=== PATIENT | female | born 1945 | race Caucasian/White ===

== ENCOUNTER 2017-12-27 03:54 | Inpatient (IN) | payer OTHER ==
--- NOTE | 2017-12-24 13:51 | Cons- Neurosurgical ---
General Information and HPI Consulting Request Date of Consult: 12/06/19 Requested By: Mayela DIA,Cruz Dove Reason for Consult: 10 years of low back pain and with sciatica Source of Information: patient Exam Limitations: no limitations History of Present Illness: 72-year-old right-handed lady 10 years history of back pain 1 year of low pain. There is no definite trauma in her past history. 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 Her symptoms are worse with sneezing bending simply walking and lying down and are somewhat improved with rest and medications. She complains of weakness in her back and tingling in her legs. She has had chiropractic treatment and physical therapy and has had at least one epidural injection that gave her marginal improvement. She has worn a brace that gave her marginal improvement Allergies/Medications Allergies: Coded Allergies: oxycodone (From PERCOCET) (Intermediate, NAUSEA 06/16/16) Home Med List: Aspirin (Ecotrin*) 81 MG TABLET.DR 1 TAB PO DAILY HEART/BLOOD (Reported) Calcium Carbonate/Vitamin D3 (Calcium 600 + Vit D3 Caplet) 600 MG-800 TABLET 1 TAB PO DAILY SUPPLEMENT (Reported) Celecoxib (Celebrex) 100 MG CAPSULE 1 CAP PO DAILY PAIN/INFLAMMATION ( Reported) Cyanocobalamin (Vitamin B-12) (Vitamin B-12) 1,000 MCG CAPSULE 1 CAP PO DAILY SUPPLEMENT (Reported) Duloxetine HCl 30 MG CAPSULE.DR 1 CAP PO DAILY MENTAL HEALTH (Reported) Levothyroxine Sodium 50 MCG TABLET 1 TAB PO DAILY THYROID (Reported) Losartan/Hydrochlorothiazide (Losartan-Hctz 100-25 MG Tab) 100 MG-25 MG TABLET 1 TAB PO DAILY BP (Reported) [place]-3 Acid Ethyl Esters (Lovaza) 1 GRAM CAPSULE 2 CAP PO BID CHOLESTEROL/ TRIGLYCERIDES (Reported) Oxymetazoline HCl (Afrin) 0.05 % MIST 1 SPRAY NASB QPM CONGESTION (Reported) Rosuvastatin Calcium (Crestor) 10 MG TABLET 1 TAB PO DAILY CHOLESTEROL ( Reported) Ubidecarenone (Co Q-10) 100 MG CAPSULE 1 CAP PO BID SUPPLEMENT (Reported) Current Medications: Current Medications Sig/Karyna Start time Last Medication Dose Route Stop Time Status Admin Cefazolin Sodium 1,000 MG ONCE 12/27 0000 NR IV 12/27 9176 Past History Medical History Blood Transfusion Hx: No Neurological: NONE EENT: NONE Cardiovascular: hypertension, hyperlipidemia Respiratory: NONE Gastrointestinal: diverticulitis Hepatic: NONE Renal: NONE Musculoskeletal: chronic back pain, CERVICAL SURG Psychiatric: anxiety Endocrine: hypothyroidism Blood Disorders: NONE Cancer(s): NONE COMMERCIAL FRONT LOAD [employer]IVER/Reproductive: NONE Other Medical Hx: No other significant medical history Surgical History Pertinent Surgical History: colon resection, neck surgery Psychosocial History Where Do You Live? Home Who Do You Live With? spouse Services at Home: None Primary Language: Singaporean Smoking Status: Former Smoker ETOH Use: denies use Illicit Drug Use: denies illicit drug use Living Will? unknown Power of Sugar [employer] Supervisor/HCP? unknown Functional Ability ADLs Independent: dressing, eating, toileting, bathing. Ambulation: independent IADLs Independent: shopping. Employment History Employment: Retired Profession/Employer: nursing Retired? yes Review of Systems Review of Systems: She denies bowel or bladder dysfunction Review of Systems Constitutional: Denies: see HPI. EENTM: Denies: see HPI. Cardiovascular: Denies: see HPI. Respiratory: Denies: see HPI. GI: Denies: see HPI. Genitourinary: Denies: see HPI. Musculoskeletal: Reports: see HPI. Skin: Denies: see HPI. Neurological/Psychological: Reports: see HPI. Hematologic/Endocrine: Denies: see HPI. Immunologic/Allergic: Denies: see HPI. All Other Systems: Reviewed and Negative Exam & Diagnostic Data Vital Signs and I&O Vital signs as per intake sheet and per primary care Physical Exam: Awake alert oriented. She stands 5 foot 4 and weighs 174 pounds. She is tender to palpation of her back she has spasms paraspinous muscles. Presumably bending but marked limitation of hyperextension. Strength is 5 over 5 in all groups. She has 2+ knee jerks, 1+ ankle jerks on the left absent on the right. The toes are downgoing and she has negative straight leg raising. Sensory examination is symmetrical. Physical Exam General Appearance: alert Head: atraumatic Eyes: Bilateral: normal appearance. Ears, Nose, Throat: normal pharynx Neck: supple Respiratory: normal breath sounds Cardiovascular: regular rate/rhythm Breasts deferred Peripheral Pulses: 2+ carotid (R), 2+ carotid (L), 2+ femoral (R), 2+ femoral (L) Gastrointestinal: soft Rectal: deferred Back: see above Extremities: normal inspection Neurologic/Psych: see above Cranial Nerves: normal hearing Skin: see above Lymphatic: no lesions Reproductive: deferred Pelvic: deferred Other Physical Findings: No other significant finding Last 24 Hours of Labs: Pending CXR and Imaging Results: MRI demonstrates right paracentral disc herniation and severe facet arthropathy at L5-S1, anterolisthesis of L4-L5 with severe bilateral facet arthropathy and foraminal entrapments Other Results: Lab work within normal limits Assessment/Plan Assessment/Plan Stenosis L4 5 L5-S1, spondylolisthesis L4-L5, disc disease L5-S1 She is being admitted for a decompressive laminectomy and fusion and disc excision Other Findings/Comments: Cruz Pedro M.D. Consult Acknowledgment - Thank you for your consult request.
[~2017-12-27] VITALS: Ht 162.6 cm; Wt 78.9 kg
[~2017-12-27 03:54] MED LIST: AFRIN15 ML NASB; ASPIRIN EC81 M1 PO; CALCIUM 600 +1 EAC9 PO; CELEBREX100 M1 PO; CO Q-10100 MG PO; CRESTOR10 M1 PO; DULOXETINE HCL30 MG PO; LEVOTHYROXINE50 MCG PO; LOSARTAN-HCTZ1 EAC2 PO; LOVAZA1 G1 PO; VITAMIN B-121000 MC4 PO
[2017-12-27] MEDS ORDERED: TIZANIDINE HCL2 M2 PO (06:34)
[2017-12-27] MEDS ORDERED: TOPROL XL50 M1 PO (06:47)
--- NOTE | 2017-12-27 15:44 | Operative Report ---
Operative/Inv Procedure Report Surgery Date: 12/27/17 Name of Procedure: #1 decompressive lumbar laminectomy bilateral L4 5 #2 decompressive lumbar laminectomy bilateral L5-S1 #3 left-sided medial facetectomy and osteo-Carlos Eduardo osteotomy at L4 5 left #4 right sided medial facetectomy L5-S1 right #5 preparation of space for fusion L4 5 L5-S1 #6 left insertion of TL ORIF fuse cage at L4 5 As secondary #7 right insertion of TL ORIF fuse cage at L5-S1 #8 stealth registration #9 stealth guided pedicle screw insertion L4 L5 S1 bilateral #10 arthrodesis O2 and allograft L4 to S1 bilateral Pre-Operative Diagnosis: #1 spondylolisthesis L4 5 #2 lumbar spinal stenosis L5-S1 Post-Operative Diagnosis: same Estimated Blood Loss: 900cc Surgeon/Elect Equip Maint Eng: Mayela DIA,Cruz Dove(co-surgeon) MD MENDEZ Michael Anesthesia: general endotracheal tube Monitors: neurophysiology IV Fluids: 200cc Implants: see [employer] sheet as tlif Fuse cage=[id number] at L4-5 [id number] at L5S1 Urine Output: 180cc Drains: 2xhemovac Specimens: HNP Microbiology: none Tourniquet: none Complications: none Condition: stable Operative Indication: 72-year-old right-handed lady with 10 years history of back pain with gradual worsening. The pain was of a mechanical nature. There was essentially little or no leg pain Her workup revealed spondylolisthesis at L4 5 and tight stenosis at L5-S1 Indications for surgery alternative risks and possible convocation were discussed at length. Patient elected to have surgery performed O guarantees given all questions answered Operative/Procedure Note Note: The patient was brought in supine intubated supine received 2 g of intravenous antibiotics was then placed prone on the Gordy table. All surfaces of contact were padded doubly and the position was deemed to be satisfactory in association with anesthesia The back was prepped and draped usual sterile manner infiltrated with Xylocaine and epinephrine and sharp dissection was carried down to the aponeurosis which was then taken down on both sides of the midline and a subperiosteal elevation of the muscle was performed allowing us to land on the lamina of 345 and a lot the sacrum and onto the transverse processes of L4-L5 and the alae a LAE of the sacrum A marker was then placed confirming that we were under the lamina of L5 following which the spinous processes of 54 and partially of 3 were removed Starting at the L5-S1 level in the midline with 3 and 4 mm Kerrisons a complete laminectomy of 5 was accomplished followed by a complete laminectomy of 4 ligamentum flavum was then removed and midline compressing structures at L4 5 L5 -S1 were likewise removed the medial facet on the right hand on the left-hand side at L4 5 was removed with a Leksell and Kerrisons opening widely the pars and allowing for full visualization of both the nerve structures and disc material likewise on the right-hand side at L5-S1. Aggressive medial facetectomy allowed us to have a complete decompression of the nerve roots and of the disc space at that level Following this after obtaining further x-rays the disc space was entered at L5- S1 after being cauterized and disc material removed and the standard manner and this dilators starting at 8 mm brought up to about 12 mm a trial device shown to be satisfactory and aggressive curettes used to prepare the space DBF graft on the was reconstituted with blood material and a mix of DBF and autologous bone were placed in the disc space once it has been fully prepared and a 12 x 12 mm x 8 29 mm fuse cage was inserted at the L5-S1 level coming in from the right Attention was then directed towards the left-hand side at L4 5 where likewise once the nerve root was gingerly retracted the annulus was incised and disc material removed in the standard fashion before dilating all the way up to 13 and using cutting devices likewise removed soft tissue once the space was likewise prepared the after curetting the space accepted a 13 mm x 8 of fuse cage and this will both were verified on AP and lateral films be in satisfactory position and were inserted without any anomalies of EMG tracing 1 spray films were obtained showing good satisfactory position across the midline reattachment for the starburst was attached to the L2 spinous process and the O arm brought in. Films were obtained allowing us to plan the Stealth part of the procedure Following this pedicle screws at L4-L5 and S1 were inserted bilaterally under Stealth direction and after testing with neurophysiology and S1 screw was repositioned and were satisfied with the positioning of all the screws Using a high-speed drill the bone was prepared for fusion on the traversing transverse processes of L4-L5 and the a lot the sacral sacrum as well as the medial aspects of the facets. Autologous bone and DBF graft on were inserted and arthrodesis obtained bilaterally in such manner. A new O arm series of images were obtained confirming that we had very good positioning of all the pedicle screws and neurophysiological testing was silent 2 Hemovacs were left in the deep space after placing 500 mg of vancomycin powder on the arthrodesis surfaces The muscle was closed in depth with 0 Dexon muscle and aponeurosis were closed with 0 Dexon the muscle infiltrated with 30 mL of quarter percent Marcaine plain subcutaneous and subcutaneous taken a tissue were closed with 2 and 3-0 Dexon and skin was closed with stainless steel aileen a full dressing was applied and the patient was in satisfactory condition upon removal to the recovery room Findings: Tight stenosis as well as abnormal anatomy at the L5-S1 level Discharge Disposition: PACU Additional Comments: Neurophysiological finding at the end was satisfactory CC: Mayela DIA,Cruz Dove; Zayda DIA,Camron Hendrickson
[2017-12-27 17:30] VITALS: BP 142/72
[2017-12-27 19:45] VITALS: BP 136/78
--- NOTE | 2017-12-27 20:03 | PN- Orthopedic ---
Subjective Subjective: POC feeling ok, some incisional soreness. no po intake, no oob yet. +uo via de leon. no cp/sob/n/v Objective Vital Signs and I&Os Vital Signs Date Time Temp Pulse Resp B/P B/P Pulse O2 O2 Flow FiO2 Mean Ox Delivery Rate 12/27 1944 98.7 61 20 136/78 97 Nasal 2.0L Cannula 12/27 1729 99.4 70 18 142/72 96 Nasal 2.0L Cannula 12/27 1729 97 Nasal 2.0L Cannula OLIVIA L: 75+ since OR, serosang OLIVIA R: 75+ since OR, serosang de leon- clear yellow urine in bag, 200+ Physical Exam: GEN- NAD CARD-S1S2 RRR PULM-CTAB EXT/BACK- incision cdi, jpx2 with serosang to self suction, ttp at incision. BLE: calves soft nt, alps on, palp pedal pulses, gross sensate intact/equal, + dorsi/plantar flexion Assessment/Plan Assessment/Plan A- POD0 sp decompressive lumbar laminectomy with fusion, stable with approprate postop pain P- prn pain meds, valium alps, oob, ambulate, pt eval ist, titrate o2 jpx2 to self suction abx while jps in place reg diet home meds dc planning Core Measures Venous Thromboembolism VTE Risk Factors Surgery No Mechanical VTE Prophylaxis d/t N/A MechProphylax Ordered No VTE Pharm Prophylaxis d/t Surgical Contraindication (per Dr. Pedro)
--- NOTE | 2017-12-27 20:47 | Admission Core Measures ---
Acute Coronary Syndrome (CM) ACS Core Measures Acute Coronary Syndrome Diagnosis No Congestive Heart Failure (NEW) CHF Core Measures Congestive Heart Failure Diagnosis No Cerebrovascular Accident (NEW) CVA Core Measures CVA/TIA Diagnosis No Venous Thromboembolism VTE Core David (View Protocol) VTE Risk Factors Surgery No Mechanical VTE Prophylaxis d/t N/A MechProphylax Ordered No VTE Pharm Prophylaxis d/t Surgical Contraindication (per Dr. Pedro) Problem List As ranked by this Provider includes Assessment & Plan 1. Lumbar spondylosis HOME MEDS Home Med List Aspirin (Ecotrin*) 81 MG TABLET.DR 1 TAB PO DAILY HEART/BLOOD (Reported) Calcium Carbonate/Vitamin D3 (Calcium 600 + Vit D3 Caplet) 600 MG-800 TABLET 1 TAB PO DAILY SUPPLEMENT (Reported) Celecoxib (Celebrex) 100 MG CAPSULE 1 CAP PO DAILY PAIN/INFLAMMATION ( Reported) Cyanocobalamin (Vitamin B-12) (Vitamin B-12) 1,000 MCG CAPSULE 1 CAP PO DAILY SUPPLEMENT (Reported) Duloxetine HCl 30 MG CAPSULE.DR 1 CAP PO DAILY MENTAL HEALTH (Reported) Levothyroxine Sodium 50 MCG TABLET 1 TAB PO DAILY THYROID (Reported) Losartan/Hydrochlorothiazide (Losartan-Hctz 100-25 MG Tab) 100 MG-25 MG TABLET 1 TAB PO DAILY BP (Reported) Metoprolol Succ XL (Toprol Xl) 50 MG TAB 1 TAB PO DAILY HEART HEALTH ( Reported) [place]-3 Acid Ethyl Esters (Lovaza) 1 GRAM CAPSULE 2 CAP PO BID CHOLESTEROL/ TRIGLYCERIDES (Reported) Oxymetazoline HCl (Afrin) 0.05 % MIST 1 SPRAY NASB QPM CONGESTION (Reported) Rosuvastatin Calcium (Crestor) 10 MG TABLET 1 TAB PO DAILY CHOLESTEROL ( Reported) Tizanidine HCl 2 MG CAPSULE (Unknown Dose) PRN PAIN/MUSCLE RELAXANT (Reported ) Ubidecarenone (Co Q-10) 100 MG CAPSULE 1 CAP PO BID SUPPLEMENT (Reported)
[2017-12-27 21:18] VITALS: BP 126/64
--- NOTE | 2017-12-27 22:16 | RADIOLOGY REPORT ---
EXAMINATION: CR LUMBOSACRAL SPINE/INTRAOPERATIVE FLUOROSCOPY and O- ARM CLINICAL INDICATION: L4-L5 through L5-S1 decompressive laminectomies, discectomies with fusion in OR. COMPARISON: Lumbar spine films dated 02/03/2016. TECHNIQUE/FINDINGS: Fluoroscopic and o-arm equipment was dedicated to the operating room for the performance of an intraoperative procedure. Several (8) spot films and 2 OR spins were acquired and are archived in PACS, detailing various stages of the lumbar spine decompression and fusion with disc spacer placements at L4-L5 and L5-S1. Please refer to operative notes for procedural detail. FLUOROSCOPY TIME: Intraoperative fluoroscopy: 1.5 minutes. O-arm: 11.67 seconds. IMPRESSION: Administrative dictation for intraoperative fluoroscopy, O-arm use and image archiving in PACS. Please refer to operative notes for details.
--- NOTE | 2017-12-27 22:45 | Operative Report ---
Operative/Inv Procedure Report Surgery Date: 12/27/17 Name of Procedure: 1) L4 Decompressive Interpedicular Laminectomy, L4-L5 Right Partial Medial And Left Subtotal Facetectomies, Right Expanding And Left Partial Unroofing Foraminotomies, And Left Neurodecompressive Discectomy (Mary/Mayela) 2) L5 Decompressive Interpedicular Laminectomy, L5-S1 Right Subtotal And Left Partial Medial Facetectomies, Right Partial Unroofing And Left Expanding Foraminotomies, And Right Neurodecompressive Discectomy (Mary/Mayela) 3) L4-L5 Multicolumn (Anterior Column Interbody And Posterobilateral Column Osteoarticular Element And Intertransverse Process) Instrumented Fusion Using Morselized Nonstructural Locally Harvested Autograft Augmented With Nonstructural Allograft Substitute Osteopromotive Material (Mayela-Mary Co- Surgeons) 4) L5-S1 Multicolumn (Anterior Column Interbody And Posterobilateral Column Osteoarticular Element And Intertransverse Process) Instrumented Fusion Using Morselized Nonstructural Locally Harvested Autograft Augmented With Nonstructural Allograft Substitute Osteopromotive Material (Mayela-Mary Co- Surgeons) 5) L4-L5 Implantation Of Left Interbody Cage Instrumentation (Mayela/ Mary) 6) L5-S1 Implantation Of Right Interbody Cage Instrumentation (Mayela/ Mary) 7) L4-S1 Implantation Of Posterobilateral Sozjnyt-Pzkyf-Nvp Segmental Instrumentation (Mayela/Hetalk) 8) L4-S1 Stealth Frameless Stereotactic Computer-Assisted Spinal Navigational Placement Of Posterobilateral Pedicle Screw Instrumentation ( Mayela) 9) [place], Preparation And Implantation Of Iliac Crest Autologous Bone Marrow Aspirate (Mayela) 10) Preparation, Reconstitution And Implantation Of L4-S1 Interbody And Posterobilateral Intertransverse Process Nonstructural Allograft Substitute Osteopromotive Material (Myaela) 11) [place], Preparation And Implantation Of L4-S1 Interbody And Posterobilateral Intertransverse Process Nonstructural Morselized Local Autograft (Mayela) Pre-Operative Diagnosis: Primary Surgically Treated Diagnoses: 1) L4-L5 Lumbar Mid- To Upper Grade I Degenerative Dynamic Lumbar Spondylolisthesis Causing Mechanical Axial Low Back Pain, Severe Pistoning Lumbar Spinal Stenosis And Neurogenic Claudication 2) L4-L5 Lumbar Intervertebral Disc Disorder With Associated Mild Lumbar And Lumbosacral Distribution Proximal Radiculopathy 3) L5-S1 Lumbosacral Intervertebral Disc Disorder With Concurrent Mild Lumbar And Lumbosacral Distribution Proximal Radiculopathy 4) L4-L5 Bilateral Moderate To Severe Multizone (Moderate [place], Severe Bilateral Recess And Mild To Moderate Bilateral Foraminal) Osseous And Hypertrophic Soft Tissue Degenerative Disk Space Level Lumbar Spinal Stenosis 5) L5-S1 Bilateral Moderate To Severe Lateral Zone (Moderate To Severe Bilateral Recess And Foraminal) Osseous And Hypertrophic Soft Tissue Disk Space And Facet Level Lumbosacral Spinal Stenosis 6) L4-L5 Lumbar Spondylosis With Associated Mild Lumbar And Lumbosacral Distribution Proximal Radiculopathy 7) L5-S1 Lumbosacral Spondylosis With Concurrent Mild Lumbar And Lumbosacral Distribution Proximal Radiculopathy 8) L4-L5 And L5-S1 Clinical And Radiologic Findings Confirming Clinically Significant Degenerative Spinal Segmental Instability (L4-L5 Dynamic Spondylolisthetic Macroinstability And L5-S1 Severe Degenerative Microinstability With Vacuum Phenomenon) 9) Bilateral Severe, Activity And Functionally Limiting, Intermittently Incapacitating,Debilitating And Disabling Lumbar And Lumbosacral Region Axial Low Back Pain 10) L4-L5 Severe And L5-S1 Moderate Bilateral Neurocompressive Degenerative Lumbar Spinal Facet Instability Associated With Mild "Open Facet Sign" And Subluxation On MRI 11) L4-L5 Severe And L5-S1 Moderate Bilateral Hypertrophic And Neurocompressive Degenerative Lumbar And Lumbosacral Spinal Facet Arthropathy/ Osteoarthritis 12) L4-L5 Severe And L5-S1 Moderate Bilateral Degenerative Lumbar And Lumbosacral Spinal Facet Arthropathy/Arthritis 13) L4-L5 Mild To Moderate Degeneration Of Lumbar Intervertebral Disc Associated With Moderate Endplate Spondylotic Radiologic Changes Likely Contributing To Concurrent Segmental Instability With Clinical Features Beyond Radiculopathy Described Elsewhere In This Diagnosis List 14) L5-S1 Severe Degeneration Of Lumbosacral Intervertebral Disc Resulting In Symmetrical Disk Space Narrowing, Intradiscal Vacuum Phenomenon, Vertical Foraminal Narrowing, Osseous Foraminal Stenosis, Bordering Endplate MRI (Modic) Signal Changes As Well As Moderate Endplate Spondylotic Radiologic Changes Consistent With Segmental Microinstability With Clinical Features Beyond Radiculopathy Described Elsewhere In This Diagnosis List 15) L4-L5 Central [place]-Based Degenerative Displacement Of Lumbar Intervertebral Disc With Mild Intraforaminal Extension Associated With Clinical Features Beyond Radiculopathy Described Elsewhere In This Diagnosis List 16) L5-S1 [place]-Based Degenerative Displacement Of Lumbosacral Intervertebral Disc With Moderate Intraforaminal Extension And Encroachment Associated With Clinical Features Beyond Radiculopathy Described Elsewhere In This Diagnosis List 17) L4-L5 Lumbar Spondylosis [Associated With Clinical Features Beyond Radiculopathy Described Elsewhere In This Diagnosis List 18) L5-S1 Lumbosacral Spondylosis Associated With Clinical Features Beyond Radiculopathy Described Elsewhere In This Diagnosis List 19) Proximal Lower Extremity Lower Lumbar Distribution Claudicating Activity- Proportional Radiculopathy Distinct From Concurrent Intervertebral Disc Disorder And Spondylosis 20) Proximal Lower Extremity Lumbosacral Distribution Claudicating Activity- Proportional Radiculopathy Distinct From Concurrent Intervertebral Disc Disorder And Spondylosis Potential Primary Surgically Treated Diagnoses: 21) Lower Lumbar And Lumbosacral Region Bilateral Probable Multizone (Nearly Circumferential) Adherent And Potentially Tethering Lumbar And Lumbosacral Inflammatory And Degenerative Epidural Fibrosis Secondary Surgically Relevant Diagnoses: 22) Diffuse Lumbar Regional Spinal Degenerative Arthritis (Spondylopathy) 23) Moderate Scoliosis Post-Operative Diagnosis: Same as preoperative diagnosis list with the addition of: Intraoperative Surgically Treated Diagnoses: 1) L4-S1 Intraoperative (Post-Decompression, Pre-Instrumentation) Significant Anterior And Posterior Element Destabilization Secondary To Required Extensive Osseous and Soft Tissue Decompression Above And Beyond Preoperatively Documented Segmental Instability Requiring Intraoperative Instrumentation For Acute Stabilization, Optimization Of Fusion Potential And Overall Outcome Intraoperative And Postoperative Diagnoses Relevant To Postoperative Care: 1) L4-S1 Potential Increased Postoperative (Post-Decompression, Post- Instrumentation And Pre-Arthrodesis) Microinstability Under Cyclic Loading Even With Multicolumn Instrumentation Indicating Early Postoperative Activity Limitation And Circumferential Lumbar Compression Orthosis Use For Optimized Symptom Control, Stabilization, Fusion, Postoperative Function And Overall Outcome 2) Expected Acute Postoperative Lumbosacral Region Pain Requiring Postoperative Intravenous Narcotic Analgesic Pain Medication And Inpatient Nursing Observation Following Standard And Uncomplicated But Extensive Multilevel Lumbosacral Region Decompression And Multicolumn Instrumented Fusion 3) Expected Acute Postoperative Lumbosacral Region Muscular Spasm Requiring Postoperative Muscle Relaxant Medication And Inpatient Nursing Observation Following Procedure Documented Above 4) L4, L4-L5, L5 And L5-S1 Levels Lumbar And Lumbosacral Posterior Central, Posterobilateral, Lateral And Ventrolateral Osseous And Soft Tissue Decompression And Discectomy Postprocedural Status 5) L4-S1 Lumbar And Lumbosacral Spinal Early Postprocedural Instrumented Arthrodesis Status 6) Potential For Optimization And/Or Acceleration Of Bone Healing Relative To The Standard Healing Likelihood And Timecourse For The Extent (Number Of Motion Segments) Of Multicolumn, Multilevel Arthrodesis Performed (Due To The Multilevel Nature Of The Patient's Procedure And The Need For Partial Augmentation Of Fusion Mass Using Allograft Substitute Osteopromotive Material) All Of Which Meet Criteria For The Use Of An External Pulsed Electromagnetic Field Stimulation Device To Potentially Optimize And Accelerate Osseous Fusion Formation Estimated Blood Loss: 900 cc Estimated Blood Loss 465 cc Cell Saver Return Surgeon/Principal Architectural Firm: CUBA FELIZ MD - Primary Admitting Orthopaedic Spine Co-Surgeon OSMIN HERNANDEZ MD - Primary Consulting Neurological Spine Co-Surgeon Surgical Providers: Regarding Orthopaedic Spine Portion Of Procedure Dictated Here: Cuba Feliz M.D. - Orthopaedic Spine Surgeon (Co-Surgeon/Primary Admitting Surgeon) Osmin Hernandez M.D. - Neurosurgeon (Co-Surgeon/Principal Architectural Firm Surgeon) See Neurosurgical Operative Report Regarding Surgical Provider Designation For Neurosurgical Spine Portion Of Procedure Anesthesia: general endotracheal tube Monitors: Standard general anesthesia and other perioperative monitoring was performed per anesthesia protocols. Standard Intraoperative EMG, SSEP and MEP electrophysiological monitoring was performed per protocol (NeuroAlert). Refer to anesthesia and intraoperative electrophysiological monitoring records for details. IV Fluids: Standard anesthesia perioperative fluid management was performed without requirement for additional or emergent fluid resuscitation. Refer to anesthesia and cell-saver records for details. Implants: Implants Placed: Posterolateral Lumbar And Lumbosacral Junction Region Interbody Implants: [employer] [place] FUSE Titanium Posterolateral Interbody Cage Implants: 1 x 12 mm Height x 9.5 mm Width x 24.5 mm Depth x 8 Degree Lordosis On The Right At L5-S1 1 x 13 mm Height x 9.5 mm Width x 24.5 mm Depth x 8 Degree Lordosis On The Left At L4-L5 Posterobilateral Lumbar And Lumbosacral Junction Region Transpedicular Transvertebral Implants: Wishberga ATS System Posterobilateral Transpedicular Transvertebral Kbwghur-Bamcu-Ews Construct: 2 x 6.5 mm Diameter x 40 mm Length Dual Thread Pitch Pedicle Screws (One On Each Side At S1) 4 x 6.5 mm Diameter x 50 mm Length Dual Thread Pitch Pedicle Screws (One On Each Side At L5 And L4) 1 x 4.75 mm Diameter x 55 mm Length Russell-Chrome Juan On The Right From L4-S1 1 x 4.75 mm Diameter x 50 mm Length Russell-Chrome Juan On The Left From L4-S1 Graft Placed: Autograft Placed: Morselized Locally Harvested Autograft Harvested From: Resection Of L4 And L5 Spinous Processes L4 And L5 Interpedicular Laminectomies L4-L5 And L5-S1 Bilateral Facetectomies And Foraminotomie Placed At L4-L5 And L5-S1 In Anterior And Posterobilateral Columns Filling Central Chamber Of Each Interbody Cage (At L4-L5 And L5-S1) In Disk Space Anterior To And Surrounding Each Interbody Cage At L4-L5 And L5-S1 In Bilateral Intertransverse Posterolateral Spaces From L4 To S1 Allograft Placed: Nonstructural Processed Allograft Substitute Osteopromotive Material Placed: [employer] [place] DBF 1 x 6 cc Container Placed In Intervertebral Disk Space Anterior To Cage At L4-L5 And L5-S1 1 x 6 cc Container Placed In The Posterolateral Intertransverse Spaces Bilaterally From L4 To S1 1 Urine Output: Refer to anesthesia records for details. Drains: Large bore (15 Mongolian) subfascial OLIVIA drains x 2 to medium bulb suction reservoir. Fenestrated portions of drain tubes placed in each posterolateral intertransverse space (lateral gutter) with unfenestrated portion through deep muscle, fascia, subcutaneous tissue, and skin of bilateral inferolateral aspect of surgical site fierro without suture fixation. Specimens: Removed L4-L5 and L5-S1 lumbar disk fragments sent to pathology for analysis per hospital protocol. Complications: None Operative/Procedure Note Note: Preoperative Holding Area Assessment/Preparation: The patient was evaluated in the preoperative holding area prior to surgery and no clinical changes or contraindications to surgical intervention were evident compared to the normal preoperative baseline documented on office and clearance general, neurovascular and nonspinal musculoskeletal evaluations. Her primary presenting findings of axial mechanical lumbar pain were subjectively unchanged by patient report and not specifically assessed at the immediate preoperative evaluation. The surgical plan and site were confirmed with the patient and preoperative paperwork was finalized. The region of the intended surgical site was cleansed, prepped and marked per protocol. The surgeons, anesthesia care team members, and operating room staff verified the patient identity, surgical procedure, and operative site as well as other clinical details with the patient in an initial documented preoperative confirmation (awake time out) prior to the administration of significant sedation or anesthesia. Prior to receiving any preoperative medications, she also confirmed her NPO status since midnight. Surgical Procedure: Dr. Feliz and Dr. Hernandez were both present for and participated equally as co-surgeons in all clinically significant phases of the surgical procedure documented below as well as for all critical nonsurgical intraoperative and perioperative decisions and interventions. The set-up, positioning, frameless CT-referenced stereotactic analysis and guidance, disk space and posterobilateral osseous element fusion surface preparation and decortication, stabilization with implantation of multicolumn (interbody cage and posterobilateral ejumcnd-uoacv-nhg construct) instrumentation, multicolumn ( interbody and posterobilateral intertransverse-process space) arthrodesis and closure portions of the procedure are described in greatest detail in this operative report. Refer to Dr. Gee Neurosurgical operative report for additional details particularly regarding the electrophysiological monitoring, exposure, decompressive laminectomies, posterobilateral osseous and soft tissue element decompression (facetectomies, foraminotomies and epidural neurolysis where necessary) and decompressive intraforaminal discectomies as well as the complete neural element decompression and mobilization portions of the procedure. Set-Up/Positioning/Exposure - The patient was brought to the operating room in stable condition and underwent uncomplicated induction of general anesthesia, intubation, and placement of all appropriate monitors, lines, tubes and catheters without difficulty. Administration of 2 grams of IV Ancef based on patient body mass was given for surgical prophylaxis and was completed at least 30 and less than 60 minutes prior to making an incision. This antibiotic dose was repeated at four hour intervals throughout the procedure per standard operative protocols. The patient was positioned prone on the [facility] operating table in standard fashion for a lower lumbar discectomy taking care to protect and stabilize the spine during transfer, avoid positions of nerve stretch, pad all pressure points, and support the head without any pressure on the eyes using a foam head rest and head-holding frame. Electrophysiological monitoring electrodes were applied per standard monitoring protocol. The arms were abducted less than 90 degrees at the shoulders, flexed less than 90 degrees at the elbows and supported on well- padded arm-boards with additional foam padding from the axillary regions to the hands. All pressure points were either fully padded or suspended without any contact at all between pads. Baseline preoperative electrophysiological monitoring readings were obtained and no gross abnormalities were noted with no asymmetry or other finding to suggest occult compression or neurophysiologic deficit. All responses were in the normal range for amplitude and pattern. A cross-table lateral fluoroscopic image was obtained with a skin marker in place to determine the optimal level for incision, to document optimized intraoperative lumbar alignment, and to confirm acceptable radiologic visualization of the intended operative levels with sufficient detail down to the lumbosacral junction and sacral levels throughout the procedure. The approach, exposure, hemostasis, retractor placement, fluoroscopic identification of intended operative levels, laminar resection, facetectomy, foraminotomy, limted epidural neurolysis and decompressive discectomy portions of the procedure are dictated in greatest detail by Dr. Hernandez in his Neurosurgery operative report and are only briefly summarized below. Refer to that document for additional details. In brief summary, the surgical field was prepped and draped using standard sterile technique with Duraprep, sterile towels, an Ioband incise drape and an edge-adhesive rectangular surgical field drape. Prior to beginning the procedure, the surgeons, anesthesia care team, and operating room staff again documented the patient identity, surgical procedure, and operative site in a final confirmation ("final time out") per standard hospital and [facility] protocol. The patient's midline surgical site incision was then mapped based on palpation localization of surface landmarks ( bilateral iliac crests and spinous process tips), marked with a sterile surgical marking pen and made using a #10 scalpel blade extending longitudinally from the palpated superior tip of the L3 spinous process to the inferior tip of the S1 spinous process overlying the posterior elements of the intended L4-S1 operative segment. Hemostasis was achieved using Bovie and Bipolar electrocautery beginning with the incision and continuing throughout the procedure with settings appropriate to each progressive level. The lumbosacral fascia was divided over both sides of the palpated spinous process tips and the interconnecting interspinous ligament segments between them using the Bovie electrocautery which was also used to maintain hemostasis throughout the exposure. Care was taken to preserve the midline interspinous ligament tissue complex as much as possible at all levels until the dissected levels had been confirmed to be the intended operative levels by fluoroscopic localization. The dissection was carried through the subcutaneous layer in line with the incision, both the upper and lower skin flaps were mobilized so as to minimize traction injury, and the platysma was then bluntly dissected in line with its fibers and divided longitudinally to expose the underlying strap muscles. The dissected interlaminar space was marked with a Norman elevator- dissector placed under the inferior leading edge of the superior lamina and confirmed to be at the intended interspace on cross-table lateral fluoroscopic image. Intraoperative findings of multilevel mid- and lower lumbar moderate degenerative disk disease and segmental L4-L5 spondylolisthesis was unchanged from the preoperative radiologic studies and no obvious interval change or additional abnormality was noted. The overall alignment of the lumbar spine on this intraoperative localization radiograph was noted to be normally lordotic and unchanged from preoperative office studies. Once the appropriate levels were fluoroscopically confirmed, the posterior element dissection and exposure was completed by fully dividing the fascia on both sides of the spinous processes from mid-L3 to S1, dissecting down both sides of the L3, L4, L5 and S1 spinous processes and continuing this dissection bilaterally to fully expose the intended laminar (inferior L3, complete L4, complete L5 and superior S1) and interlaminar (L3-L4, L4-L5 and L5-S1) levels out to the capsules of the facet joints which were initially preserved on both sides. Bovie and Bipolar electrocautery as well as a Gutierrez elevator were then used to dissect over the facet joints and pars interarticularis regions, down the lateral margins of the facets (taking care to maintain hemostasis of the faceteal vessels where necessary), over the dorsal surfaces of the L3, L4 and L5 transverse processes as well as the L3-L4, L4-L5 and L5-S1 intertransverse membranes and sacral ala bilaterally out to the most lateral extent of the transverse processess to fully expose and prepare the left posterolateral gutter for fusion. Once this dissection was completed, the lateral gutters were thoroughly irrigated, deep Gelpi retractors were placed for optimal exposure and the intertransverse regions were packed bilaterally with counted moist sponges. Attention was then returned to the central canal region for midline decompression.
[2017-12-27 23:28] VITALS: BP 122/64
[2017-12-28 03:18] VITALS: BP 120/64
[2017-12-28 06:53] VITALS: BP 118/62
[2017-12-28 07:54] LABS: ABSOLUTE BASOPHIL COUNT 0 /CUMM (0.0-0.2); ABSOLUTE EOSINOPHIL COUNT 0 /CUMM (0.0-0.7); ABSOLUTE GRANULOCYTE CT 6.7 /CUMM (1.4-6.5); ABSOLUTE LYMPH COUNT 1.5 /CUMM (1.2-3.4); BASOPHIL % 0.3 % (0.0-2.0); EOSINOPHIL % 0.1 % (0-5); GRANULOCYTE % 72.1 % (42.2-75.2); HEMATOCRIT 31.6 % (37-47); MEAN CORPUSCULAR HGB 30.7 PG (27.0-31.0); MEAN CORPUSCULAR HGB CONC 34.1 G/DL (33.0-37.0); MEAN PLATELET VOLUME 8.7 FL (7.4-10.4); PLATELET COUNT 191 /CUMM (130-400); RBC DISTRIBUTION WIDTH 13.7 % (11.5-14.5); RED BLOOD CELL CT 3.51 /CUMM (4.20-5.40); WHITE BLOOD CELL COUNT 9.3 /CUMM (4.8-10.8)
--- NOTE | 2017-12-28 09:18 | PN- Neurosurgical ---
Surgical Brief Attending Note Brief Attending Note: POD#1 AVSS expected LBP no deficit of legs drains still producing but less doing well ambulate with PT drains out in the am tomorrow d/w and PA
[2017-12-28 11:16] VITALS: BP 125/70
[2017-12-28 15:30] VITALS: BP 100/58
[2017-12-28 22:43] VITALS: BP 118/54
[2017-12-29 05:27] VITALS: BP 128/64
[2017-12-29 07:55] LABS: ABSOLUTE BASOPHIL COUNT 0 /CUMM (0.0-0.2); ABSOLUTE EOSINOPHIL COUNT 0 /CUMM (0.0-0.7); ABSOLUTE LYMPH COUNT 1.2 /CUMM (1.2-3.4); ABSOLUTE MONOCYTE COUNT 1.2 /CUMM (0.10-0.60); BASOPHIL % 0.4 % (0.0-2.0); EOSINOPHIL % 0.4 % (0-5); GRANULOCYTE % 75.8 % (42.2-75.2); HEMATOCRIT 28.7 % (37-47); MEAN CORPUSCULAR HGB 31.1 PG (27.0-31.0); MEAN CORPUSCULAR HGB CONC 34.5 G/DL (33.0-37.0); MEAN CORPUSCULAR VOLUME 90.4 FL (81.0-99.0); MEAN PLATELET VOLUME 8.7 FL (7.4-10.4); PLATELET COUNT 175 /CUMM (130-400); RBC DISTRIBUTION WIDTH 13.6 % (11.5-14.5); RED BLOOD CELL CT 3.17 /CUMM (4.20-5.40); WHITE BLOOD CELL COUNT 10.5 /CUMM (4.8-10.8)
--- NOTE | 2017-12-29 10:19 | PN- Orthopedic ---
Subjective Subjective: feeling ok, c/o low back soreness. no LE complaints. limited oob with PT yesterday. maggy diet. no cp.sob/n/v Objective Vital Signs and I&Os Vital Signs Date Time Temp Pulse Resp B/P B/P Pulse O2 O2 Flow FiO2 Mean Ox Delivery Rate 12/29 0936 74 130/62 12/29 0936 74 130/62 12/29 0527 97.9 76 24 128/64 93 Nasal 2.0L Cannula 12/28 2243 98.7 79 18 118/54 94 Nasal 2.0L Cannula 12/28 1530 99.2 70 19 100/58 93 Room Air 12/28 1116 99.1 74 20 125/70 94 Room Air Intake & Output 12/29 1600 12/29 0800 12/29 0000 12/28 1600 12/28 0800 12/28 0000 Intake Total 614 182 3963 600 930 Output Total 380 570 605 910 700 Balance -140 330 795 -310 230 Intake, IV 600 600 450 Intake, Oral 240 900 800 480 Number 0 0 Bowel Movements Output, 55 70 155 160 300 Drainage Output, Urine 325 500 450 750 400 Patient 174 lb Weight Weight Reported by Patient Measurement Method Physical Exam: gen- nad card- s1s2 rrr pulm- ctab abd- soft nt back- dressing changed, staple line cdi with some mild clip erythema, no active drainage, no flucuance. JPx2 with serosang drainage (JP1: 25//; JP2: 30,40, 80). ext- calves soft nt bl, +pedal pulses, gross sensation intact bl le, +dorsi/ plantar flexion bl. limited striaght leg lift bl Assessment/Plan Assessment/Plan A- POD2 sp lumbar lami, stable, awaiting furhter PT treatment and recommendations. P- prn pain meds - po dvt ppx: alps, oob. no pharm dvt ppx per surgeon OOB, ambulate, PT home meds DC JPs today? Dc planning will dw attending Core Measures Venous Thromboembolism VTE Risk Factors Surgery No Mechanical VTE Prophylaxis d/t N/A MechProphylax Ordered No VTE Pharm Prophylaxis d/t Surgical Contraindication (per Dr. Pedro)
--- NOTE | 2017-12-29 13:31 | PN- Neurosurgical ---
Surgical Brief Attending Note Brief Attending Note: Postoperative day #2 AVSS Incision looks good Drains removed Ambulating Discharge tomorrow
[2017-12-29 13:37] VITALS: BP 94/54
--- NOTE | 2017-12-29 14:08 | Patient Discharge Instructions ---
Discharge Instructions General Discharge Information You were seen/treated for: Chronic back pain due to spondylolisthesis L4-5 and lumbar spinal stenosis L5-S1 You had these procedures: L4-5, L5-S1 laminectomy, fusion Watch for these problems: Increasing pain despite the use of pain medication Increasing redness, warmth or swelling Drainage of any type from incision Persistent nausea and vomiting Fever greater than 101.5 degrees Other wound care: Please keep wound clean and dry. No ointments or lotions of any type on or near incision. Daily dry dressing changes are recommended each day thereafter. You may shower 48hr after surgery. Do not soak your wound- no tub baths or swimming. Special Instructions: Use the back brace when out of bed, avoid excessive bending and twisting. Call tomorrow for another prescription of pain medication from Dr Pedro Diet Continue normal diet: Yes Activity Activity Self Limited: Yes Other activity limits: Activity as tolerated. Use assistive devices as needed. Acute Coronary Syndrome Inclusion Criteria At DC or during hospital stay patient has or had the following: ACS DIAGNOSIS No Discharge Core Measures Meds if any: Prescribed or Continued at Discharge Meds if any: NOT Prescribed or Continued at Discharge Congestive Heart Failure Inclusion Criteria At DC or during hospital stay patient has or had the following: CHF DIAGNOSIS No Discharge Core Measures Meds if any: Prescribed or Continued at Discharge Meds if any: NOT Prescribed or Continued at Discharge Cerebrovascular accident Inclusion Criteria At DC or during hospital stay patient has or had the following: CVA/TIA Diagnosis No Discharge Core Measures Meds if any: Prescribed or Continued at Discharge Meds if any: NOT Prescribed or Continued at Discharge Venous thromboembolism Inclusion Criteria VTE Diagnosis No VTE Type NONE VTE Confirmed by (Test) NONE Discharge Core Measures - Per Current guidelines, there needs to be overlap - treatment for the first 5 days of Warfarin therapy. - If discharged on Warfarin prior to 5 days of - overlap therapy, the patient will need to be - assessed for post discharge needs including - *Post discharge parental anticoagulation - *Warfarin and/or parental anticoagulation education - *Follow up date to check INR post discharge At least 5 days overlap therapy as Inpatient No Meds if any: Prescribed or Continued at Discharge Note: Overlap Therapy is Warfarin and Anticoagulant Meds if any: NOT Prescribed or Continued at Discharge
--- NOTE | 2017-12-29 14:16 | Surgical Discharge Summary ---
Visit Information Visit Dates Admission Date: 12/27/17 Discharge Date: 12/30/17 History of Present Illness Chief Complaint: Chronic back pain Medical History Blood Transfusion Hx: No Neurological: NONE EENT: NONE Cardiovascular: hypertension, hyperlipidemia Respiratory: NONE Gastrointestinal: diverticulitis Hepatic: NONE Renal: NONE Musculoskeletal: chronic back pain, CERVICAL SURG Psychiatric: anxiety Endocrine: hypothyroidism Blood Disorders: NONE Cancer(s): NONE WELDER GAS/Reproductive: NONE History of MRSA: No History of VRE: No History of CDIFF: No Isolation History: Standard Surgical History Pertinent Surgical History: hysterectomy Psychosocial History Where Do You Live? Home Who Do You Live With? Spouse Services at Home: None What is Your Primary Language? Polish ETOH Use: denies use Review of Systems: See H&P Hospital Course Course Attending Physician: Mayela DIA,[facility] Primary Care Physician: Zayda DIA,[facility] Course: Admitted 12/27/2017 for elective lumbar procedure detailed below. He tolerated well without complications. Postoperatively patient recovered on surgical floor. She is tolerating a regular diet without nausea or vomiting. Talamantes has been removed and she is voiding without difficulty. Pain is controlled with oral pain meds. She has been treated and evaluated by physical therapy and ultimately cleared for discharge from hospital. At time of discharge from hospital, she is stable Allergies: Coded Allergies: oxycodone (From PERCOCET) (Intermediate, NAUSEA 06/16/16) Significant Procedures: L4-5,L5-s1 laminectomy, fusion Disposition Summary Disposition Principal Diagnosis: Chronic back pain Additional Diagnosis: Same, status post L4-5,L5-s1 lami, fusion Discharge Disposition: home health services Discharge Instructions General Discharge Information Code Status: Full Code Patient's Diet: Regular Patient's Activity: As tolerated. No strenuous activity. Use assistive devices as needed. Follow-Up Instructions/Appts: Call to be seen in 2 weeks. Medications at Discharge Discharge Medications: Stop taking the following medications: Celecoxib (Celebrex) 100 MG CAPSULE ORAL DAILY Continue taking these medications: Duloxetine HCl (Duloxetine HCl) 30 MG CAPSULE.DR 1 Capsule ORAL DAILY Levothyroxine Sodium (Levothyroxine Sodium) 50 MCG TABLET 1 Tablet ORAL DAILY Rosuvastatin Calcium (Crestor) 10 MG TABLET 1 Tablet ORAL DAILY Losartan/Hydrochlorothiazide (Losartan-Hctz 100-25 MG Tab) 100 MG-25 MG TABLET 1 Tablet ORAL DAILY Calcium Carbonate/Vitamin D3 (Calcium 600 + Vit D3 Caplet) 600 MG-800 TABLET 1 Tablet ORAL DAILY Ubidecarenone (Co Q-10) 100 MG CAPSULE 1 Capsule ORAL TWICE DAILY Kite-3 Acid Ethyl Esters (Lovaza) 1 GRAM CAPSULE 2 Capsule ORAL TWICE DAILY Aspirin (Ecotrin*) 81 MG TABLET.DR 1 Tablet ORAL DAILY Cyanocobalamin (Vitamin B-12) (Vitamin B-12) 1,000 MCG CAPSULE 1 Capsule ORAL DAILY Oxymetazoline HCl (Afrin) 0.05 % MIST 1 [place] Both sides of nose Every night Tizanidine HCl (Tizanidine HCl) 2 MG CAPSULE Unknown Dose as needed for PAIN/MUSCLE RELAXANT Metoprolol Succ XL (Toprol Xl) 50 MG TAB 1 Tablet ORAL DAILY Start taking the following new medications: Diazepam (Diazepam) 5 MG TABLET 5 Milligram ORAL THREE TIMES DAILY as needed for spasm Qty = 30 No Refills Hydromorphone HCl (Hydromorphone HCl) 2 MG TABLET 2 Milligram ORAL EVERY 4 HOURS NEEDED as needed for PAIN Qty = 30 No Refills
[2017-12-29 14:42] VITALS: BP 124/62
[2017-12-29 21:40] VITALS: BP 128/60
[2017-12-30 06:41] VITALS: BP 110/60
--- NOTE | 2017-12-30 08:31 | PN- Orthopedic ---
Subjective Subjective: pt sitting in chair eating breakfast, minimal pain now after receiving pain medication this morning. had legs cramps earlier but has resolved. voiding, no BM yet, drinking coffee and prune juice now. denies numbness and tingling. denies cp/sob Objective Vital Signs and I&Os Vital Signs Date Time Temp Pulse Resp B/P B/P Pulse O2 O2 Flow FiO2 Mean Ox Delivery Rate 12/30 0641 98.7 66 20 110/60 95 Room Air 12/29 2140 98.8 77 20 128/60 94 12/29 1442 78 124/62 12/29 1337 98.3 79 20 94/54 93 12/29 0936 74 130/62 12/29 0936 74 130/62 Intake & Output 12/30 1600 12/30 0800 12/30 0000 12/29 1600 12/29 0800 12/29 0000 Intake Total 414 532 2062 240 900 Output Total 800 380 570 Balance 240 240 800 -140 330 Intake, IV 1000 Intake, Oral 240 240 600 240 900 Output, 55 70 Drainage Output, Urine 800 325 500 Physical Exam: gen- nad resp-clear cardio-rrr abd-nd, doft, nt ext- no edema, no calf tenderness, distal sensory and motor function intact back- dressing clean and dry, nontender to palpation Assessment/Plan Assessment/Plan 72yo F SP L4-5, L5-S1 lami, fusion POD3. stable physical therapy this morning, if cleared by PT will likely be DCed to home later today with services PO pain meds reg diet reg home medications dvt ppx- apls and oob, no pharm prophylaxis per surgeon Core Measures Venous Thromboembolism VTE Risk Factors Surgery No Mechanical VTE Prophylaxis d/t N/A MechProphylax Ordered No VTE Pharm Prophylaxis d/t Surgical Contraindication (per Dr. Pedro)
[2017-12-30 09:06] VITALS: BP 112/68
[2017-12-30 09:07] VITALS: BP 112/68
[2017-12-30] MEDS ORDERED: HYDROMORPHONE HC2 M1 PO (11:17)
[2017-12-30] MEDS ORDERED: DIAZEPAM5 M1 PO (11:17)
== END 2017-12-30 12:37 | disposition home health service (06) | DRG 454 ==
LOC: SDA 03:54 → ENRESERV 15:59 → ENTRNSPT 17:23 → EDTRNSPTSTS 17:30 → EDTRNSPT 17:30 → 2NB 17:37 → CMPTRNSPT 17:44 → ENPENDDIS 12-30 11:16 → 2NB 12-30 12:37 → ENTRNSPT 12-30 12:37 → EDTRNSPT 12-30 12:45 → EDTRNSPTSTS 12-30 12:45 → CMPTRNSPT 12-30 12:53
PROVIDERS: Physician Assistant; Physician Assistant Surgical
PROC: 0SG1071 Fusion of 2 or more Lumbar Vertebral Joints with Autologous Tissue Substitute, Posterior Approach, Posterior Column, Open Approach (ICD-10-PCS; principal; 2017-12-27)
PROC: 0SG30AJ Fusion of Lumbosacral Joint with Interbody Fusion Device, Posterior Approach, Anterior Column, Open Approach (ICD-10-PCS; principal; 2017-12-27)
PROC: 0QB10ZZ Excision of Sacrum, Open Approach (ICD-10-PCS; principal; 2017-12-27)
PROC: 0QB00ZZ Excision of Lumbar Vertebra, Open Approach (ICD-10-PCS; principal; 2017-12-27)
DX: M47.27 Other spondylosis with radiculopathy, lumbosacral region (principal); K57.92 Diverticulitis of intestine, part unspecified, without perforation or abscess without bleeding; E03.9 Hypothyroidism, unspecified; E78.5 Hyperlipidemia, unspecified; I10 Essential (primary) hypertension; Z90.49 Acquired absence of other specified parts of digestive tract; Z79.82 Long term (current) use of aspirin; F41.9 Anxiety disorder, unspecified
CPT/HCPCS: 2NBP; 36415; 36592; 72100; 82436; 87086; 88304; 97110-GO; 97116-GO; 97161-GP; 97530-GO; C1713; J0690; J1644; J2405; J3370; J3490; J7042